=== PATIENT | male | born 1995 | race Two or more races ===

== ENCOUNTER 2019-09-05 13:03 | Emergency (ER) | payer SELFPAY ==
[~2019-09-05] VITALS: Ht 167.6 cm; Wt 59.0 kg
[2019-09-05 14:51] LABS: BASOPHILS % 0.4 % (0.0-2.0); EOSINOPHILS % 0.1 % (0.0-5.0); HEMATOCRIT. 50.6 % (42.0-52.0); HEMOGLOBIN. 16.2 g/dL (14.0-18.0); LYMPHOCYTES % 16.4 % (20.0-50.0); MEAN CORPUSCULAR HEMOGLOBIN 28.4 pg (28.0-32.0); MEAN CORPUSCULAR VOLUME 88.7 fL (80.0-94.0); MEAN PLATELET VOLUME 8.7 fl (7.4-10.4); MONOCYTES % 3.4 % (2.0-8.0); NEUTROPHILS % 79.7 % (40.0-76.0); PLATELET 238 x1000/uL (130-400); RED BLOOD CELL COUNT 5.71 mill/uL (4.7-6.1); RED CELL DISTRIBUTION WIDTH 13.7 % (11.6-14.6)
[2019-09-05 14:57] LABS: CHLORIDE 110 mEq/L (98-107)
[2019-09-05 15:01] LABS: ETHANOL BLOOD 192 mg/dL
[2019-09-05] MEDS ORDERED: IBUPROFEN 600MG TABLET PO ONE (17:15)
[2019-09-05 18:00] VITALS: BP 113/78
== END 2019-09-05 18:00 | disposition home or self-care (01) ==
LOC: ER 13:03
DX: F10.229 Alcohol dependence with intoxication, unspecified (principal); Y90.6 Blood alcohol level of 120-199 mg/100 ml
CPT/HCPCS: 36415; 80053; 80320; 85025; 99285; G0480

== ENCOUNTER 2025-04-20 14:59 | Emergency (ER) | payer SELFPAY ==
[~2025-04-20] VITALS: Ht 170.2 cm; Wt 73.0 kg
[2025-04-20 15:01] VITALS: O2SAT 97
[2025-04-20] MEDS: KETOROLAC 30MG/ML VIAL IM ONE (16:17)
[2025-04-20] MEDS ORDERED: IBUP-1455 MT (19:38)
[2025-04-20 19:55] VITALS: BP 141/96; PULSE 74; RESP 16; TEMP 36.6; O2SAT 99
== END 2025-04-20 19:57 | disposition home or self-care (01) ==
LOC: ER 14:59
DX: S52.591A Other fractures of lower end of right radius, initial encounter for closed fracture (principal); V28.41XA Electric (assisted) bicycle driver injured in noncollision transport accident in traffic accident, initial encounter; Y93.55 Activity, bike riding; Y92.89 Other specified places as the place of occurrence of the external cause; Y99.8 Other external cause status
CPT/HCPCS: 25605; 73110; 99284; 96372; 73100; J1885